=== PATIENT | female | born 1990 | race Caucasian/White ===

== ENCOUNTER 2019-04-13 02:57 | Emergency (ER) | payer OTHER ==
[2019-04-13] MEDS ORDERED: Lidocaine 1% w/Epinephrine 1:100K 20 ML VIAL ONE (03:25)
[2019-04-13 03:45] LABS: #Basophils 0.2 thou/uL (0.0-0.2); #Eosinphils 0.4 thou/uL (0.0-0.7); #Lymphocytes 4.2 thou/uL (1.20-3.40); #Monocytes 0.8 thou/uL (0.11-0.59); #Neutrophils 5.3 thou/uL (1.40-6.50); %Basophils 1.7 % (0.0-1.0); %Eosinophils 3.4 % (0.0-10.0); %Lymphocytes 38.9 % (21.0-51.0); %Monocytes 7.1 % (0.0-10.0); Hemoglobin 12.6 g/dL (12.0-16.0); Mean Corpuscular HGB CONC 34.5 g/dL (32.0-36.0); Mean Corpuscular Hemoglobin 29.7 pg (27.0-31.0); Mean Corpuscular Volume 86.1 fL (78.0-98.0); Mean Platelet Volume 7.1 fL (7.4-10.4); Platelet Count 201 thou/uL (130-400); Red Blood Cell (RBC) Count 4.24 mill/uL (4.20-5.40); White Blood Cell (WBC) Count 10.8 thou/uL (4.8-10.8)
[2019-04-13 04:05] LABS: ALT (SGPT) 12 U/L (8-55); AST (SGOT) 14 U/L (5-34); Albumin 4.2 g/dL (3.5-5.0); Alcohol 184 mg/dL (Less than 10); Alkaline Phosphatase 49 U/L (40-110); Anion Gap 17 mmol/L (10-20); BUN (Urea Nitrogen) 5 mg/dL (7.0-18.7); Bilirubin, Total 0.3 mg/dL (0.2-1.2); Calc. Creatinine Clearance 0 mL/min (70-130); Calcium 9.1 mg/dL (7.8-10.44); Carbon Dioxide 24 mmol/L (22-29); Chloride 106 mmol/L (98-107); Estimated GFR-MDRD 86; Globulin 2.6 g/dL (2.4-3.5); Glucose 105 mg/dL (70-105); Potassium 4.6 mmol/L (3.5-5.1); Protein, Total 6.8 g/dL (6.0-8.3); Sodium 142 mmol/L (136-145)
[2019-04-13 04:06] LABS: Acetaminophen Less than 6.0 mcg/mL (10.0-30.0); Alcohol 184 mg/dL (Less than 10); Salicylate Less than 8.0 mg/dL (15.0-30.0)
[2019-04-13 04:46] LABS: Bilirubin Negative (Negative); Blood, Urine Negative (Negative); Clarity Clear (Clear); Glucose, Urine (Dipstick) Normal (Negative); Leukocyte Negative Leu/uL (Negative); Nitrite Negative (Negative); Protein, Urine (Dipstick) Negative (Neg-Trace); Urobilinogen Normal mg/dL (Less than 2)
[2019-04-13 04:47] LABS: Pregnancy Test - Urine (BHCG) Negative (Negative); Pregu Control Background? CLEAR/WHITE (CLR/WHITE); Pregu Control Bar Appear? YES (CONTROL BAR); Specific Gravity 1.005 (1.002-1.036)
[2019-04-13 04:56] LABS: Amphetamine Detected (NotDetected); Barbiturates Screen Not Detected (NotDetected); Benzodiazepine Screen Not Detected (NotDetected); Cocaine Metabolite Screen Not Detected (NotDetected); Medtox Reader # READER 4; Methadone Not Detected (NotDetected); Methamphetamine Not Detected (NotDetected); Opiate Screen Not Detected (NotDetected); Oxycodone Screen Not Detected (NotDetected); Phencyclidine (PCP) Not Detected (NotDetected); THC/Cannabinoid Screen Not Detected (NotDetected); Tricyclic Screen Not Detected (NotDetected)
[2019-04-13 04:57] LABS: Medtox Control Line Valid? VALID (VALID)
== END 2019-04-13 12:52 | disposition home or self-care (01) ==
LOC: ERS 02:57
DX: S61.512A Laceration without foreign body of left wrist, initial encounter (principal); F41.9 Anxiety disorder, unspecified; F32.9 Major depressive disorder, single episode, unspecified; F17.290 Nicotine dependence, other tobacco product, uncomplicated; Z79.899 Other long term (current) drug therapy; W26.0XXA Contact with knife, initial encounter
CPT/HCPCS: 12002; 36415; 80053; 80306; 80307; 81003; 81025; 84443; 85025

== ENCOUNTER 2020-05-29 21:45 | Emergency (ER) | payer BC, OTHER ==
[2020-05-29 22:11] LABS: #Basophils 0.2 thou/uL (0.0-0.2); #Eosinphils 0.2 thou/uL (0.0-0.7); #Lymphocytes 2.6 thou/uL (1.20-3.40); #Monocytes 0.6 thou/uL (0.11-0.59); #Neutrophils 6.4 thou/uL (1.40-6.50); %Basophils 1.6 % (0.0-1.0); %Lymphocytes 26.4 % (21.0-51.0); %Monocytes 5.9 % (0.0-10.0); %Neutrophils 64.1 % (42.0-75.0); Hemoglobin 13.1 g/dL (12.0-16.0); Mean Corpuscular HGB CONC 34.4 g/dL (32.0-36.0); Mean Corpuscular Hemoglobin 31.1 pg (27.0-31.0); Mean Corpuscular Volume 90.4 fL (78.0-98.0); Mean Platelet Volume 6.8 fL (7.4-10.4); Platelet Count 231 thou/uL (130-400); RBC Distribution Width 11.3 % (11.5-14.5); Red Blood Cell (RBC) Count 4.22 mill/uL (4.20-5.40)
[2020-05-29] MEDS ORDERED: Ondansetron PF 4 MG/2 ML Vial ONE (22:21)
[2020-05-29] MEDS ORDERED: Ketorolac Tromethamine 30 MG/ML VIAL ONE (22:21)
[2020-05-29 22:32] LABS: ALT (SGPT) 33 U/L (8-55); AST (SGOT) 37 U/L (5-34); Albumin 4.8 g/dL (3.5-5.0); Alkaline Phosphatase 69 U/L (40-110); Anion Gap 18 mmol/L (10-20); BUN (Urea Nitrogen) 8 mg/dL (7.0-18.7); Bilirubin, Total 0.5 mg/dL (0.2-1.2); Calc. Creatinine Clearance 0 mL/min (70-130); Calcium 9.1 mg/dL (7.8-10.44); Carbon Dioxide 23 mmol/L (22-29); Chloride 97 mmol/L (98-107); Globulin 2.6 g/dL (2.4-3.5); Glucose 95 mg/dL (70-105); Potassium 3.6 mmol/L (3.5-5.1); Protein, Total 7.4 g/dL (6.0-8.3); Sodium 134 mmol/L (136-145)
[2020-05-29] MEDS ORDERED: Lorazepam 2 MG/ML VIAL ONE (23:11)
[2020-05-30] MEDS ORDERED: Ketorolac Tromethamine 30 MG/ML VIAL ONE (00:54)
[2020-05-30] MEDS ORDERED: Acetaminophen 500 MG TAB ONE (00:56)
== END 2020-05-30 01:05 | disposition home or self-care (01) ==
LOC: ERS 21:45
DX: S12.600A Unspecified displaced fracture of seventh cervical vertebra, initial encounter for closed fracture (principal); F17.290 Nicotine dependence, other tobacco product, uncomplicated; V49.9XXA Car occupant (driver) (passenger) injured in unspecified traffic accident, initial encounter
CPT/HCPCS: 70450; 71045; 72125; 80053; 85025; 93005; 96374; 96375; 96376; G0390; J1885; J2060; J2405; L0174

== ENCOUNTER 2020-06-12 10:10 | Outpatient (CLI) | payer BC ==
--- NOTE | 2020-06-12 10:35 | RAD ---
CERVICAL SPINE: 4 views INDICATIONS:Cervical fracture COMPARISON:CT cervical spine 05/29/2020. That exam demonstrated right C7 facet fracture with teardrop fracture anterior C7 vertebra and mild anterior listhesis at C7-T1 FINDINGS: Minimal loss of height anterior C7 with tiny fragment seen along the anterior superior C7 vertebra, u nchanged from the prior CT. The other vertebral bodies maintain normal height. Mild loss of disc space at C6-C7. Anterolisthesis at C6-C7 measured 3 mm. Right facet fracture at C7 faintly visualized. No soft tissue abnormality identified. IMPRESSION: Posttraumatic findings at C6-C7 appear stable from recent CT scan
== END 2020-06-12 10:11 | disposition home or self-care (01) ==
LOC: TBSIIMAG 10:10
PROVIDERS: ATTEND Physician Assistant
DX: S12.9XXA Fracture of neck, unspecified, initial encounter (principal); S13.170A Subluxation of C6/C7 cervical vertebrae, initial encounter; Z98.890 Other specified postprocedural states
CPT/HCPCS: 72040

== ENCOUNTER 2020-06-26 09:39 | Outpatient (CLI) | payer BC ==
--- NOTE | 2020-06-26 11:25 | MRI ---
MRI of thecervical spine: 06/26/2020 COMPARISON:None available HISTORY:Recent trauma with known fractures TECHNIQUE: Multiplanar multisequence MR imaging of thecervical spine without contrast Findings:The sagittal STIR imaging demonstrates mild edematous change adjacent to the subluxed facet joint on the left at the C6-7 level, unchanged when compared to the 05/29/2020 CT examination. The STIR imaging also demonstrates edema in the region of the facet joint on the right at C6-7 which demo nstrates a fracture of the superior articular facet of C7 with associated perched facet joint. There is a fracture of the anterior superior corner of the C7 vertebral body with mild associated rodger ma. Anterolisthesis at C6-7 is again noted measuring in the 3 mm range, unchanged when compared to the cervical spine CT. C2-3: There is mild facet hypertrophy on the left with no significant central canal or neural foramin al stenosis. C3-4: No significant central canal or neural foraminal stenosis. C4-5: No significant central canal or neural foraminal stenosis. C5-6: No significant central canal or neural foraminal stenosis. C6-7: There is disc space narrowing with minimal disc bulge effacing the ventral thecal sac and leadi ng to a mild degree of central canal stenosis centrally and in the right paracentral region. No significant left-sided neural foraminal stenosis is seen. There is prominent right-sided neural cassandra inal stenosis which is secondary to the anteriorly displaced superior articular facet fracture and the perched right facet joint. There may be a disc herniation extending into the right neural foramen as well. C7-T1: No significant central canal or neural foraminal stenosis. There is increased T2 signal in the region of the anterior longitudinal ligament at the anterior supe rior corner of the C7 vertebral body suggesting anterior longitudinal ligament disruption. There is increased signal intensity in the region of the interspinous ligament at C5-6 and C6-7 consistent wit h ligamentous injury. Subtle linear edema noted involving the superior aspect of T1, T2, and T3 suggesting mild fractures w ith horizontal fracture lines noted on the T1-weighted imaging. No focal area of abnormal signal intensity identified within the cervical cord. IMPRESSION: No significant interval change in the unstable injury at C6-7 which includes disruption o f the anterior longitudinal ligament, 3 mm anterolisthesis, left facet joint subluxation and fracture of right superior articular facet with right perched facet. There are vertebral body fractur es at C7, T1, T2, and T3. There is evidence of interspinous ligament injury at C5-6 and C6-7. No abnormal signal within the cervical cord. CODE T
== END 2020-06-26 09:40 | disposition home or self-care (01) ==
LOC: BICMRI 09:39
PROVIDERS: ATTEND Surgery
DX: S12.500A Unspecified displaced fracture of sixth cervical vertebra, initial encounter for closed fracture (principal); S12.600A Unspecified displaced fracture of seventh cervical vertebra, initial encounter for closed fracture; M48.02 Spinal stenosis, cervical region; M54.12 Radiculopathy, cervical region; S13.4XXA Sprain of ligaments of cervical spine, initial encounter; S22.029A Unspecified fracture of second thoracic vertebra, initial encounter for closed fracture; S22.019A Unspecified fracture of first thoracic vertebra, initial encounter for closed fracture; S22.039A Unspecified fracture of third thoracic vertebra, initial encounter for closed fracture; M43.12 Spondylolisthesis, cervical region; M53.2X2 Spinal instabilities, cervical region
CPT/HCPCS: 72141

== ENCOUNTER 2020-06-30 12:30 | Day surgery (SDC) | payer BC ==
[2020-06-25 18:46] LABS: Hemoglobin 12.8 g/dL (12.0-15.5); Mean Corpuscular HGB CONC 33.4 g/dL (32.0-36.0); Mean Corpuscular Hemoglobin 29.6 pg (27.0-33.0); Mean Corpuscular Volume 88.7 fl (81.6-98.3); Mean Platelet Volume 9.8 fl (7.4-10.4); Platelet Count 253 10x3/uL (150-450); RBC Distribution Width 11.7 % (11.5-14.5); Red Blood Cell (RBC) Count 4.32 10x6/uL (3.90-5.03); White Blood Cell (WBC) Count 8.6 10x3/uL (3.5-10.5)
[2020-06-25 18:58] LABS: Anion Gap 14 mmol/L (10-20); BUN (Urea Nitrogen) 14 mg/dL (7.0-18.7); Calc. Creatinine Clearance 0 mL/min (70-130); Calcium 9.5 mg/dL (7.8-10.44); Carbon Dioxide 26 mmol/L (22-29); Chloride 103 mmol/L (98-107); Glucose 108 mg/dL (70-105); Potassium 4.6 mmol/L (3.5-5.1); Sodium 138 mmol/L (136-145)
[2020-06-25 19:01] LABS: PTT 25.2 sec (22.0-33.0); Prothrombin Time 10.5 sec (9.5-12.1)
[2020-06-26 01:59] LABS: SARS-CoV-2 PCR by NAA Not Detected (NotDetected)
[~2020-06-30 12:30] MED LIST: Dexamethasone 20 MG/5 ML VIAL ONE; Glycopyrrolate 0.2 MG/ML 5 ML SYRINGE ONE; Ketorolac Tromethamine 30 MG/ML VIAL ONE; Lidocaine 1% PF 5 ML VIAL ONE; Ondansetron PF 4 MG/2 ML Vial ONE; PROPOFOL 200 MG/20 ML VIAL ONE; Rocuronium Bromide 10 MG/ML (10ML VIAL) ONE; ePHEDrine 50 MG/ML VIAL ONE
[2020-06-30] MEDS ORDERED: Scopolamine 1.5 mg/72 hour Patch ONE (14:48)
[2020-06-30] MEDS ORDERED: Midazolam HCl 2 mg/2 ml Vial ONE (14:48)
[2020-06-30] MEDS ORDERED: Thrombin 5000 UNITS/5 ML VIAL ONE (15:46)
[2020-06-30] MEDS ORDERED: Fentanyl 100 MCG/2 ML VIAL ONE ×4 (15:52→19:18)
[2020-06-30] MEDS ORDERED: HYDROcodone/Acetaminophen 7.5/325 mg Tablet PO PRN (16:23)
[2020-06-30] MEDS ORDERED: Milk Of Magnesia 30 ML UDCUP PO PRN (16:23)
[2020-06-30] MEDS ORDERED: traMADol HCl 50 MG TAB PO PRN (16:23)
[2020-06-30] MEDS ORDERED: Acetaminophen/Codeine 30-300mg Tablet PO PRN (16:23)
[2020-06-30] MEDS ORDERED: Acetaminophen 325 MG TAB PO PRN (16:23)
[2020-06-30] MEDS ORDERED: tiZANidine HCl 4 MG TAB PO PRN (16:23)
[2020-06-30] MEDS ORDERED: Mag-Al 1200 mg/1200 mg/30 ML UDCUP PO PRN (16:23)
[2020-06-30] MEDS ORDERED: Promethazine HCl 25 MG/ML VIAL SLOW IVP PRN (18:05)
[2020-06-30] MEDS ORDERED: Promethazine HCl 25 MG/ML VIAL IM PRN (18:05)
[2020-06-30] MEDS ORDERED: Ondansetron HCl/PF 4 MG/2 ML Vial IVP PRN (18:05)
[2020-06-30] MEDS ORDERED: tiZANidine HCl 4 MG TAB ONE (18:55)
[2020-06-30] MEDS ORDERED: Cepastat Lozenges 1 LOZ PO PRN (19:02)
[2020-06-30] MEDS ORDERED: Chloraseptic Spray 180 ml Bottle PO PRN (19:02)
[2020-06-30 20:15] VITALS: BMI 25.9
[2020-06-30] MEDS: Sodium Chloride 0.9% 1,000 ML IV SCH (20:15)
[2020-06-30] MEDS ORDERED: DEXTROAMPHETAMINE PO SCH (21:00)
[2020-06-30] MEDS ORDERED: AMPHETAMINE PO SCH (21:00)
[2020-06-30] MEDS: CEFAZOLIN 2 GM in Premix Bag 1 BAG IVPB SCH (21:05)
[2020-06-30] MEDS: Morphine 2 MG/ML VIAL SLOW IVP PRN (21:57)
[2020-07-01] MEDS: Morphine 2 MG/ML VIAL SLOW IVP PRN (04:28)
[2020-07-01] MEDS: Sodium Chloride 0.9% 1,000 ML IV SCH (05:08)
[2020-07-01] MEDS: CEFAZOLIN 2 GM in Premix Bag 1 BAG IVPB SCH (05:08)
--- NOTE | 2020-07-01 08:27 | PRG ---
DATE OF SERVICE: 07/01/2020 Ms. Willis is postoperative day 1. Her right C7 myotomal weakness has improved. She continues to have paresthesias, but she thinks these are improved as well. Her drain output has been as expected. We will remove it and discharge her. Job ID: [id number]
[2020-07-01 08:34] VITALS: BP 120/69; TEMP 98.2
--- NOTE | 2020-07-01 08:41 | OP ---
DATE OF PROCEDURE: 06/30/2020 BOOT REPAIRER: Teodora Churchill PA-C PREPROCEDURE DIAGNOSIS: Unstable progressive fracture dislocation, C6-C7 with unilateral facet fracture, neurologic compromise. POSTPROCEDURE DIAGNOSIS: Unstable progressive fracture dislocation, C6-C7 with unilateral facet fracture, neurologic compromise. PROCEDURES PERFORMED: 1. Anterior C6-C7 diskectomy for decompression of spinal cord and C7 nerve roots, hoahaoism of alignment. 2. Placement of interbody spacer, not attached to this plate, packed with allograft with local bone autograft and allograft. 3. Anterior cervical plate and screw fixation, C6-C7. 4. Use of operative microscope for microdissection. DESCRIPTION OF PROCEDURE: After informed consent was obtained from the patient, the patient was brought to the OR. Proper patient, pause, and identification were carried out. She was placed under excellent general endotracheal anesthesia and positioned supine on the OR table. A right anterior neck wound was drawn out. This area was sterilely cleansed, prepared, and draped. Proper patient, pause, and identification were carried out. The wound was then opened in a combination of sharp, monopolar, and blunt dissection, proceeded lateral to the tracheoesophageal bundle medial to the right carotid sheath. We identified the anterior cervical spine C6-C7 segment. The anterior longitudinal ligament was intact. The C6 and C7 segments were exposed. The subluxation identified. Localization film confirmed our area of interest. We then brought the microscope in and the C6-C7 diskectomy was performed. The endplates were prepared and interbody spacer appropriate dimension was placed, packed with graft. Once the spinal cord and nerve roots were freed, this is for arthrodesis and hoahaoism of alignment. Anterior cervical plate and screw fixation then occurred with final tightening. Copious irrigation occurred throughout as did maximizing hemostasis. The wound was then closed in anatomic layers following the placement of a drain. Job ID: [id number]
[2020-07-01] MEDS ORDERED: Dexamethasone 10 MG/ML VIAL SLOW IVP SCH (08:45)
[2020-07-01] MEDS ORDERED: Escitalopram Oxalate 10 mg Tablet PO SCH (09:00)
== END 2020-07-01 11:59 | disposition home or self-care (01) ==
LOC: SDC 12:30 → 3SE 16:22 → SDC 07-01 11:59
PROVIDERS: ATTEND Surgery
PROC: 0RG10A0 Fusion of Cervical Vertebral Joint with Interbody Fusion Device, Anterior Approach, Anterior Column, Open Approach (ICD-10-PCS; principal; 2020-06-30)
PROC: 0RT30ZZ Resection of Cervical Vertebral Disc, Open Approach (ICD-10-PCS; principal; 2020-06-30)
DX: S12.590A Other displaced fracture of sixth cervical vertebra, initial encounter for closed fracture (principal); S12.690A Other displaced fracture of seventh cervical vertebra, initial encounter for closed fracture; Z79.899 Other long term (current) drug therapy; V89.2XXA Person injured in unspecified motor-vehicle accident, traffic, initial encounter
CPT/HCPCS: 36415; 76000; 80048; 85027; 85610; 85730; 86850; 86900; 86901; 87635; C1713; C1776; J0690; J1100; J1885; J2250; J2270; J2405; J2704; J3010; J3490; U0003; U0005

== ENCOUNTER 2020-08-11 10:35 | Outpatient (CLI) | payer BC | END 2020-08-11 10:36 | disposition home or self-care (01) | LOC: TBSIIMAG 10:35 | PROVIDERS: ATTEND Physician Assistant | DX: S12.9XXA Fracture of neck, unspecified, initial encounter (principal); S13.170A Subluxation of C6/C7 cervical vertebrae, initial encounter; Z98.890 Other specified postprocedural states | CPT/HCPCS: 72040 ==